=== PATIENT | female | born 1970 | race Caucasian/White ===

== ENCOUNTER 2021-10-25 12:30 | Outpatient (CLI) | payer OTHER, SELFPAY | END 2021-10-25 12:31 | disposition home or self-care (01) | LOC: SLEEP 10-29 07:42 | PROVIDERS: Family Provider Family Medicine; Visit Provider Nurse Practitioner Family | DX: G47.10 Hypersomnia, unspecified (principal) | CPT/HCPCS: G0399 ==

== ENCOUNTER 2022-01-02 20:00 | Outpatient (CLI) | payer OTHER, SELFPAY | END 2022-01-02 20:01 | disposition home or self-care (01) | LOC: SLEEP 01-03 08:29 | PROVIDERS: Family Provider Family Medicine; Visit Provider Nurse Practitioner Family | DX: G47.33 Obstructive sleep apnea (adult) (pediatric) (principal) | CPT/HCPCS: 95811 ==

== ENCOUNTER 2023-12-08 12:47 | Emergency (ER) | payer OTHER, SELFPAY ==
[2023-12-08 13:06] VITALS: BP 114/79; PULSE 106; RESP 14; TEMP 36.7; O2SAT 97
--- NOTE | 2023-12-08 14:23 | ED_ITS ---
Documented by User: JULIANA Newman 12/08/23 14:47 HPI - Extremity Injury (Upper) General: Chief Complaint: Extremity Injury, Upper Stated Complaint: sent from [facility] arm Time Seen by Provider: 12/08/23 14:22 Source: patient Mode of arrival: ambulatory Limitations: no limitations History of Present Illness: Patient 53-year-old female presents to ED today after she was seen at [facility] and diagnosed with a left wrist fracture. Patient states she was at work when she tripped and fell and injured the left wrist. This is a Worker's Comp. injury. She denies any other injury sustained during the fall. [facility] was concerned as the fracture most likely needed reduction. MD complaint: injury to: left and wrist Onset (ago): hour(s) Other Extremity Injury: Left: wrist Other injuries: none Handedness: left Place: work Severity: severe Relieving factors: immobilization Exacerbating factors: movement of extremity Context: fall Associated symptoms: Reports no associated symptoms; Denies neck pain or weakness in extremities Review of Systems Musc: Reports: joint pain (L wrist) and joint swelling (L wrist); Denies: neck pain, back pain, extremity pain or extremity swelling Skin/Breast: Denies: rash Neuro: Denies: headache(s), numbness in extremities, weakness in extremities or sensory changes Physical Exam Const: COMMON NORMALS: average body habitus, patient oriented x3, no limitations, alert and well nourished GENERAL APPEARANCE: cooperative and in distress (in pain secondary to L wrist fracture) Extremity: COMMON NORMALS: capillary refill normal GENERAL: Yes normal exam except as noted LEFT UPPER EXTREMITY: Yes wrist (significant fracture deformity of L wrist) Left wrist: Yes neurovascular exam (normal) Neuro: COMMON NORMALS: patient oriented x3, moves all extremities, no focal motor deficits and no sensory deficits noted SENSORIUM/ORIENTATION: Yes alert Course Vital Signs: Vital signs: Vital Signs Temperature 98.1 F 12/08/23 13:06 Pulse Rate 101 H 12/08/23 15:52 Respiratory Rate 18 12/08/23 15:52 Blood Pressure 133/79 12/08/23 15:52 Pulse Oximetry 97 12/08/23 15:44 Oxygen Delivery Me thod CPAP 12/08/23 15:52 MDM - Extremity Injury (Upper) Medical Decision Making XR from [facility] reviewed showing a Colles' fracture with significant deformity. She will require conscious sedation. Dr. Landa has also assessed patient and will perform procedure. Please see his note for procedure/conscious sedation as well as disposition. Medical Records I reviewed the patient's medical records. All radiology interpretation(s) finalized by discharge Discharge Plan Discharge Patient Disposition: Home Clinical Impression: Fracture of wrist Condition: Stable Prescriptions: New hydrocodone-acetaminophen 5-325 mg tablet 1 tab PO Q6H PRN (Reason: pain) Qty: 14 0RF Discharge Orders: Discharge ED (Routine); Ordered 12/08/23 Ordered By: Meri Landa Referrals: Rivas Corrales DO [Physician] - 1-3 days Discharge Diet: Advance as tolerated Discharge Activity: Resume usual activity Patient Instructions: Wrist Fracture in Adults (ED), Opioid Safety Coding Level of Care Code ED Bet Taker for Chg Fwd Documented by User: Meri Landa MD 12/08/23 16:00 HPI - Extremity Injury (Upper) General: Chief Complaint: Extremity Injury, Upper Stated Complaint: [facility] from [facility] [employer] Time Seen by Provider: 12/08/23 14:22 Procedures Orthopedic Joint Reduction Joint #1: Time Out Performed: Yes Side: left Joint Reduction Location: wrist Analgesia: procedural sedation Technique used: traction/counter-traction Post-reduction neuro exam: intact Post-reduction vascular: intact Post Reduction X-Ray Obtained: Yes Post Reduction X-Ray Results: reduced Splint Applied: Yes Patient Tolerated Procedure: well Orthopedic Splinting/Casting Injury #1: Side: left Upper Extremity Injury Location: wrist Upper Extremity Immobilizer: sugar tong splint Procedural Sedation Indication: fracture/dislocation reduction ASA Class: I Time of Last PO Intake: 08:00 Preparation: monitoring tech applied, pulse oximeter and supplemental O2 applied IV Propofol dose (mg): 100 Patient Tolerated Procedure: well Complications: none Course Vital Signs: Vital signs: Vital Signs Temperature 98.1 F 12/08/23 13:06 Pulse Rate 101 H 06/03/24 15:52 Respiratory Rate 18 12/08/23 15:52 Blood Pressure 133/79 12/08/23 15:52 Pulse Oximetry 97 12/08/23 15:44 Oxygen Delivery Me thod CPAP 12/08/23 15:52 MDM - Extremity Injury (Upper) Medical Decision Making XR from [facility] reviewed showing a Colles' fracture with significant deformity. She will require conscious sedation. Dr. Landa has also assessed patient and will perform procedure. Please see his note for procedure/conscious sedation as well as disposition. I saw patient with midlevel agree with her history and physical. I did sedate patient and reduced her wrist she has good alignment neurovascular intact did splint her water follow-up with orthopedics return if worsening Discharge Plan Discharge Patient Disposition: Home Clinical Impression: Fracture of wrist Condition: Stable Prescriptions: New hydrocodone-acetaminophen 5-325 mg tablet 1 tab PO Q6H PRN (Reason: pain) Qty: 14 0RF Discharge Orders: Discharge ED (Routine); Ordered 12/08/23 Ordered By: Meri Landa Referrals: Rivas Corrales DO [Physician] - 1-3 days Discharge Diet: Advance as tolerated Discharge Activity: Resume usual activity Patient Instructions: Wrist Fracture in Adults (ED), Opioid Safety Coding Level of Care Code ED Bet Taker for Luba Combs
[2023-12-08] MEDS: morphine 4 mg/mL SDV 1 mL IM (15:12)
[2023-12-08] MEDS: ondansetron 2 mg/ML SDV 2 mL 4 MG IM (15:12)
--- NOTE | 2023-12-08 15:12 | DCPLANNER ---
message sent to ortho for er f/u
--- NOTE | 2023-12-08 15:13 | XR_ITS ---
WS: [id number] XR wrist LT 2V [id number] REASON FOR EXAM: post reduction FINDINGS: Post reduction film of the extra-articular transverse fracture of the distal right radial metaphysis with dorsal tilt has been restored to an anatomic alignment with good position of the fracture fragme nts. The ulnar styloid fracture fragment is also in anatomic alignment. XR/XR wrist LT 2V [id number] IMPRESSION: Post reduction examination demonstrates good position of the fracture fragments of the left wrist fracture.
[2023-12-08] MEDS: propofol 10 mg/mL SDV 20 mL 100 MG IVP (15:34)
[2023-12-08 15:44] VITALS: PULSE 97; RESP 21; O2SAT 97
[2023-12-08 15:52] VITALS: BP 133/79; PULSE 101; RESP 18; O2SAT 97
[2023-12-08] MEDS: HYDROcodone-acetaminophen 5-325 mg Tablet 1 TAB PO (16:05)
== END 2023-12-08 16:16 | disposition home or self-care (01) ==
PROVIDERS: Emergency Provider Emergency Medicine
DX: S52.552A Other extraarticular fracture of lower end of left radius, initial encounter for closed fracture (principal); S52.612A Displaced fracture of left ulna styloid process, initial encounter for closed fracture; W01.0XXA Fall on same level from slipping, tripping and stumbling without subsequent striking against object, initial encounter
CPT/HCPCS: 25605; 73100; 99285; J2270; J2405; J2704

== ENCOUNTER 2023-12-12 06:00 | Outpatient (CLI) | payer OTHER, SELFPAY | END 2023-12-12 23:59 | disposition home or self-care (01) | LOC: SOT 12-15 12:10 | PROVIDERS: Visit Provider Student in an Organized Health Care Education/Training Program | DX: Z46.89 Encounter for fitting and adjustment of other specified devices (principal); S62.102D Fracture of unspecified carpal bone, left wrist, subsequent encounter for fracture with routine healing; W19.XXXD Unspecified fall, subsequent encounter | CPT/HCPCS: L3984 ==

== ENCOUNTER → 2023-12-12 07:52 | Outpatient (BNVA) | payer OTHER, SELFPAY | PROVIDERS: Referring Provider Physician Assistant; Visit Provider Physician Assistant | DX: S62.102A Fracture of unspecified carpal bone, left wrist, initial encounter for closed fracture; W19.XXXA Unspecified fall, initial encounter | CPT/HCPCS: 73110 ==

== ENCOUNTER → 2023-12-18 13:55 | Outpatient (BNVA) | payer OTHER, SELFPAY | PROVIDERS: Visit Provider Physician Assistant | DX: S62.102A Fracture of unspecified carpal bone, left wrist, initial encounter for closed fracture (principal); X58.XXXA Exposure to other specified factors, initial encounter | CPT/HCPCS: 73110 ==

== ENCOUNTER → 2023-12-25 09:26 | Outpatient (BNVA) | payer OTHER, SELFPAY | PROVIDERS: Visit Provider Physician Assistant | DX: S62.102A Fracture of unspecified carpal bone, left wrist, initial encounter for closed fracture (principal); X58.XXXA Exposure to other specified factors, initial encounter | CPT/HCPCS: 73110 ==

== ENCOUNTER → 2024-01-07 11:32 | Outpatient (BNVA) | payer OTHER, SELFPAY | PROVIDERS: Visit Provider Physician Assistant | DX: S62.102D Fracture of unspecified carpal bone, left wrist, subsequent encounter for fracture with routine healing; X58.XXXD Exposure to other specified factors, subsequent encounter | CPT/HCPCS: 73110 ==

== ENCOUNTER → 2024-01-21 09:09 | Outpatient (BNVA) | payer OTHER, SELFPAY | PROVIDERS: Visit Provider Physician Assistant | DX: S62.102A Fracture of unspecified carpal bone, left wrist, initial encounter for closed fracture (principal); X58.XXXA Exposure to other specified factors, initial encounter | CPT/HCPCS: 73110 ==

== ENCOUNTER → 2024-02-19 11:01 | Outpatient (BNVA) | payer OTHER, SELFPAY | PROVIDERS: Visit Provider Physician Assistant | DX: S62.102A Fracture of unspecified carpal bone, left wrist, initial encounter for closed fracture (principal); X58.XXXA Exposure to other specified factors, initial encounter | CPT/HCPCS: 73110 ==

== ENCOUNTER → 2024-04-01 09:06 | Outpatient (BNVA) | payer OTHER, SELFPAY | PROVIDERS: Visit Provider Physician Assistant | DX: S62.102A Fracture of unspecified carpal bone, left wrist, initial encounter for closed fracture (principal); X58.XXXA Exposure to other specified factors, initial encounter | CPT/HCPCS: 73110 ==